=== PATIENT | female | born 1995 | race Caucasian/White ===

== ENCOUNTER 2023-05-28 09:27 | Emergency (ER) | payer OTHER ==
[~2023-05-28] VITALS: Ht 149.9 cm; Wt 85.7 kg
[2023-05-28] MEDS ORDERED: DEXAMETHASONE 4 MG/ML VIAL PO ONE (09:45)
[2023-05-28] MEDS ORDERED: ALBUTEROL 0.083% 2.5 MG/3 ML NEBU INH ONE (09:45)
[2023-05-28] MEDS ORDERED: IPRATROPIUM 0.02% 0.5 MG/2.5 ML NEBU INH ONE (09:45)
[2023-05-28 10:01] VITALS: PULSE 132; RESP 24; O2SAT 96
[2023-05-28 10:50] VITALS: BP 133/81; PULSE 129; RESP 22; TEMP 98.9; O2SAT 96
[2023-05-28 11:40] VITALS: BP 133/81; PULSE 143; RESP 22; TEMP 98.2; O2SAT 97
== END 2023-05-28 11:40 | disposition home or self-care (01) ==
LOC: MED 09:27
DX: J45.901 Unspecified asthma with (acute) exacerbation (principal)
CPT/HCPCS: 81025; 94640; 99283; J1100; J7613; J7644

== ENCOUNTER 2023-10-08 22:23 | Emergency (ER) | payer OTHER ==
[~2023-10-08] VITALS: Ht 162.6 cm; Wt 86.2 kg
[2023-10-08] MEDS ORDERED: ALBUTEROL SULFATE/IPRATROPIU 3 ML SOL IH ONE (22:55)
[2023-10-08 23:03] VITALS: BP 142/90; PULSE 143; RESP 20; TEMP 98; O2SAT 99
[2023-10-08 23:07] VITALS: O2SAT 92
[2023-10-08] MEDS: ALBUTEROL SULFATE/IPRATROPIU 3 ML SOL IH ONE (23:07)
[2023-10-08 23:08] VITALS: PULSE 121; RESP 20
[2023-10-08 23:09] VITALS: O2SAT 92
[2023-10-08] MEDS: methylPREDNISolone SS 125 MG/2 ML VIAL IVP ONE (23:37)
[2023-10-09] MEDS ORDERED: PRED20TA5 PO (00:49)
[2023-10-09] MEDS ORDERED: ALBU0.0912 IH (00:49)
[2023-10-09] MEDS ORDERED: AZIT250T4 PO (00:49)
[2023-10-09] MEDS ORDERED: PRON INH (00:49)
[2023-10-09 01:03] VITALS: BP 140/87; PULSE 88; RESP 17; O2SAT 97
== END 2023-10-09 01:03 | disposition home or self-care (01) ==
LOC: MED 22:23
DX: J45.901 Unspecified asthma with (acute) exacerbation (principal); J20.9 Acute bronchitis, unspecified; Z79.899 Other long term (current) drug therapy
CPT/HCPCS: 71045; 94640; 96374; 99283; J2930

== ENCOUNTER 2023-10-10 22:55 | Emergency (ER) | payer OTHER ==
[~2023-10-10] VITALS: Ht 149.9 cm; Wt 89.8 kg
[~2023-10-10 22:55] MED LIST: ALBU0.0912 IH; AZIT250T4 PO; PRED20TA5 PO; PRON INH
[2023-10-10 23:00] VITALS: BP 119/73; PULSE 120; RESP 18; TEMP 97.6; O2SAT 98
[2023-10-10] MEDS: ALBUTEROL SULFATE/IPRATROPIU 3 ML SOL IH ONE (23:46)
[2023-10-10 23:49] LABS: BASOPHILS % (AUTO) 0.1 % (0.0-2.0); EOSINOPHILS % (AUTO) 0.1 % (0.0-4.0); HEMATOCRIT 42.6 % (36-48); HEMOGLOBIN 14.7 g/dL (12.0-16.0); LYMPHOCYTES # (AUTO) 1.2 K/uL (2.5-16.5); LYMPHOCYTES % (AUTO) 13.8 % (20.5-51.1); MEAN CORPUSCULAR HEMOGLOBIN 29 pg (27-31); MEAN CORPUSCULAR HGB CONC 35 g/dL (33-37); MEAN CORPUSCULAR VOLUME 82.9 fL (80-94); MONOCYTES # (AUTO) 0.3 K/uL (0.8-1.0); NEUTROPHILS # (AUTO) 6.9 K/uL (1.8-7.7); PLATELET COUNT (AUTO) 318 K/uL (140-450); RED BLOOD CELL COUNT(AUTO) 5.14 MIL/uL (4.20-5.40); RED CELL DISTRIBUTION WIDTH 13.8 % (11.6-13.7); WHITE BLOOD COUNT (AUTO) 8.4 K/uL (4.8-10.8)
[2023-10-10 23:50] VITALS: PULSE 89; RESP 19; O2SAT 100
[2023-10-11] LABS: ANION GAP 14.8 (8-16); CALCIUM 9.1 mg/dL (8.5-10.1); CREATININE 0.8 mg/dL (0.6-1.3); POTASSIUM 3.8 mmol/L (3.5-5.1)
[2023-10-11] MEDS ORDERED: ALBUTEROL 0.083% 2.5 MG/3 ML NEBU INH ONE
[2023-10-11] MEDS: ALBUTEROL 0.083% 2.5 MG/3 ML NEBU INH ONE (00:01)
[2023-10-11 00:03] VITALS: PULSE 102; RESP 20; O2SAT 99
[2023-10-11] MEDS ORDERED: ONDANSETRON 4 MG/2 ML VIAL ONE (00:20)
[2023-10-11] MEDS: methylPREDNISolone SS 125 MG/2 ML VIAL IVP ONE (00:27)
[2023-10-11] MEDS: MAG SULF 2000 MG/WATER PREMIX 50 ML IV ONE (00:28)
[2023-10-11] MEDS: ONDANSETRON 4 MG/2 ML VIAL IVP ONE (00:29)
[2023-10-11] MEDS ORDERED: FLUT1DSK IH (01:29)
[2023-10-11 03:19] VITALS: BP 141/79; PULSE 87; RESP 18; TEMP 97.8; O2SAT 97
== END 2023-10-11 03:21 | disposition short-term general hospital (02) ==
LOC: MED 22:55
DX: J45.901 Unspecified asthma with (acute) exacerbation (principal); Z79.899 Other long term (current) drug therapy
CPT/HCPCS: 36415; 71045; 80048; 84703; 85025; 94640; 96365; 96366; 96375; 99291; J2405; J2930; J3475; J7613

== ENCOUNTER 2024-02-08 23:10 | Emergency (ER) | payer OTHER ==
[~2024-02-08] VITALS: Ht 149.9 cm; Wt 101.2 kg
[~2024-02-08 23:10] MED LIST changes: +FLUT1DSK IH
[2024-02-08 23:32] VITALS: BP 113/82; PULSE 104; RESP 18; TEMP 98.4; O2SAT 97
[2024-02-09 00:05] VITALS: TEMP 98.4
[2024-02-09 00:05] LABS: APPEARANCE,URINE CLEAR (CLEAR); BILIRUBIN,URINE NEGATIVE (NEGATIVE); BLOOD, URINE NEGATIVE (NEGATIVE); COLOR,URINE YELLOW (YELLOW); LEUKOCYTE ESTERASE ,URINE NEGATIVE (NEGATIVE); NITRITE, URINE NEGATIVE (NEGATIVE); PROTEIN,URINE NEGATIVE (NEGATIVE); UGLUCOSE NEGATIVE (NEGATIVE); UROBILINOGEN,URINE 0.2 EU/dL (0.2 - 1)
[2024-02-09 00:23] LABS: BASOPHILS # (AUTO) 0.2 K/uL (0.00-0.22); BASOPHILS % (AUTO) 1.7 % (0.0-2.0); EOSINOPHILS # (AUTO) 0.8 K/uL (0-0.4); EOSINOPHILS % (AUTO) 7.9 % (0.0-4.0); HEMATOCRIT 45.9 % (36-48); HEMOGLOBIN 15.5 g/dL (12.0-16.0); LYMPHOCYTES # (AUTO) 1.6 K/uL (2.5-16.5); LYMPHOCYTES % (AUTO) 15.2 % (20.5-51.1); MEAN CORPUSCULAR HEMOGLOBIN 28 pg (27-31); MEAN CORPUSCULAR HGB CONC 34 g/dL (33-37); MEAN CORPUSCULAR VOLUME 82.8 fL (80-94); MONOCYTES # (AUTO) 0.5 K/uL (0.8-1.0); MONOCYTES % (AUTO) 4.5 % (1.7-9.3); NEUTROPHILS # (AUTO) 7.3 K/uL (1.8-7.7); NEUTROPHILS % (AUTO) 70.7 % (42.2-75.2); PLATELET COUNT (AUTO) 305 K/uL (140-450); RED BLOOD CELL COUNT(AUTO) 5.55 MIL/uL (4.20-5.40); RED CELL DISTRIBUTION WIDTH 13.8 % (11.6-13.7); WHITE BLOOD COUNT (AUTO) 10.3 K/uL (4.8-10.8)
[2024-02-09 00:39] LABS: ALBUMIN 3.4 g/dL (3.4-5.0); ANION GAP 10.4 (8-16); CALCIUM 8.7 mg/dL (8.5-10.1); CARBON DIOXIDE 28.1 mmol/L (21-32); CREATININE 0.9 mg/dL (0.6-1.3); POTASSIUM 3.5 mmol/L (3.5-5.1); TOTAL BILIRUBIN 0.2 mg/dL (0.0-1.0); TOTAL PROTEIN, SERUM 6.9 g/dL (6.4-8.2)
[2024-02-09] MEDS ORDERED: KETOROLAC 60 MG/2 ML VIAL IM ONE (00:45)
[2024-02-09] MEDS ORDERED: KETOROLAC 30 MG/ML VIAL ONE (00:56)
[2024-02-09] MEDS: KETOROLAC 30 MG/ML VIAL IVP ONE (01:05)
[2024-02-09] MEDS: NACL 0.9% 1,000 ML IV ONE (01:34)
[2024-02-09] MEDS: DEXAMETHASONE 4 MG/ML VIAL IVP ONE (01:34)
[2024-02-09] MEDS: diphenhydrAMINE 50 MG/ML VIAL IVP ONE (01:34)
[2024-02-09] MEDS: FAMOTIDINE 20 MG/2 ML VIAL IVP ONE (01:35)
[2024-02-09] MEDS: LEVALBUTEROL 1.25 MG/0.5 ML NEBU INH ONE ×2 (01:57→02:11)
[2024-02-09] MEDS ORDERED: MAG SULF 2000 MG/WATER PREMIX 50 ML IV ONE (01:57)
[2024-02-09 01:58] VITALS: PULSE 121; RESP 18; O2SAT 96
[2024-02-09] MEDS: MAG SULF 2000 MG/WATER PREMIX 50 ML IV ONE (02:07)
[2024-02-09 02:12] VITALS: PULSE 128; RESP 21; O2SAT 96
[2024-02-09 03:51] VITALS: BP 115/58; PULSE 107; RESP 16; O2SAT 99
[2024-02-09] MEDS ORDERED: PRED20TA5 PO (03:56)
== END 2024-02-09 04:02 | disposition home or self-care (01) ==
LOC: MED 23:10
DX: R10.31 Right lower quadrant pain (principal); J45.901 Unspecified asthma with (acute) exacerbation; T50.905A Adverse effect of unspecified drugs, medicaments and biological substances, initial encounter; J45.909 Unspecified asthma, uncomplicated; Z79.899 Other long term (current) drug therapy; Z88.8 Allergy status to other drugs, medicaments and biological substances; Y92.89 Other specified places as the place of occurrence of the external cause
CPT/HCPCS: 36415; 71045; 80053; 81003; 81025; 83690; 85025; 94640; 96365; 96375; 99284; J1100; J1200; J1885; J3475; J3490; J7030; J7612; Q0092; 99285

== ENCOUNTER 2024-02-14 16:05 | Emergency (ER) | payer OTHER ==
[~2024-02-14] VITALS: Ht 149.9 cm; Wt 99.1 kg
[2024-02-14 16:14] VITALS: BP 131/88; PULSE 124; RESP 19; TEMP 98.9; O2SAT 97
[2024-02-14 18:17] LABS: BASOPHILS % (AUTO) 0.4 % (0.0-2.0); EOSINOPHILS # (AUTO) 0.4 K/uL (0-0.4); EOSINOPHILS % (AUTO) 3.9 % (0.0-4.0); LYMPHOCYTES # (AUTO) 1.8 K/uL (2.5-16.5); LYMPHOCYTES % (AUTO) 18.1 % (20.5-51.1); MEAN CORPUSCULAR HEMOGLOBIN 28 pg (27-31); MEAN CORPUSCULAR HGB CONC 34 g/dL (33-37); MEAN CORPUSCULAR VOLUME 82.8 fL (80-94); MONOCYTES # (AUTO) 1.1 K/uL (0.8-1.0); MONOCYTES % (AUTO) 11.1 % (1.7-9.3); NEUTROPHILS # (AUTO) 6.8 K/uL (1.8-7.7); NEUTROPHILS % (AUTO) 66.5 % (42.2-75.2); PLATELET COUNT (AUTO) 307 K/uL (140-450); RED BLOOD CELL COUNT(AUTO) 5.68 MIL/uL (4.20-5.40); RED CELL DISTRIBUTION WIDTH 13.8 % (11.6-13.7); WHITE BLOOD COUNT (AUTO) 10.2 K/uL (4.8-10.8)
[2024-02-14 18:24] LABS: ANION GAP 8.6 (8-16); CALCIUM 8.8 mg/dL (8.5-10.1); CARBON DIOXIDE 30.2 mmol/L (21-32); CREATININE 0.8 mg/dL (0.6-1.3); POTASSIUM 3.8 mmol/L (3.5-5.1)
[2024-02-14 18:39] LABS: MAGNESIUM 1.9 mg/dL (1.8-2.4); PHOSPHORUS 1.9 mg/dL (2.5-4.9); THYROID STIMULATING HORMONE 1.26 uIU/mL (0.34-3.74)
[2024-02-14] MEDS ORDERED: [UNRECOGNIZED DRUG - CODE] PO (18:48)
[2024-02-14 19:07] VITALS: BP 128/82; PULSE 88; RESP 16; TEMP 98.1; O2SAT 98
== END 2024-02-14 19:07 | disposition home or self-care (01) ==
LOC: MED 16:05
DX: R00.2 Palpitations (principal); E83.39 Other disorders of phosphorus metabolism; J45.909 Unspecified asthma, uncomplicated; Z79.899 Other long term (current) drug therapy; Z88.6 Allergy status to analgesic agent
CPT/HCPCS: 36415; 80048; 81025; 83735; 84100; 84443; 85025; 93005; 99284